=== PATIENT | female | born 2000 | race African-American/Black ===

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

== ENCOUNTER 2022-06-03 08:38 | Emergency (ER) | payer OTHER | END 2022-06-03 11:20 | disposition home or self-care (01) | LOC: ERS 08:38 | DX: J02.9 Acute pharyngitis, unspecified (principal); Z20.822 Contact with and (suspected) exposure to COVID-19 | CPT/HCPCS: 87081; 87430; 99283; U0003; U0005 ==

== ENCOUNTER 2022-07-20 13:42 | Emergency (ER) | payer OTHER | END 2022-07-20 14:30 | disposition home or self-care (01) | LOC: ERS 13:42 | DX: N94.6 Dysmenorrhea, unspecified (principal) | CPT/HCPCS: 99283 ==

== ENCOUNTER 2023-06-03 07:53 | Emergency (ER) | payer OTHER ==
[2023-06-03] MEDS ORDERED: Ibuprofen 200 MG TAB ONE (08:14)
[2023-06-03] MEDS ORDERED: Acetaminophen 500 MG TAB ONE (08:14)
== END 2023-06-03 08:30 | disposition home or self-care (01) ==
LOC: ERS 07:53
DX: M54.50 Low back pain, unspecified (principal); M70.941 Unspecified soft tissue disorder related to use, overuse and pressure, right hand
CPT/HCPCS: 99283